=== PATIENT | female | born 1985 | race Caucasian/White ===

== ENCOUNTER 2024-02-10 20:04 | Emergency (ER) | payer OTHER, SELFPAY ==
[2024-02-10 20:17] VITALS: BP 135/84; PULSE 78; RESP 18; TEMP 36.9; O2SAT 98; BMI 25.0
--- NOTE | 2024-02-10 21:08 | ED_ITS ---
HPI - General Adult General Chief complaint: Anxiety Stated complaint: Possible heart issue or panic attack Time Seen by Provider: 02/10/24 21:07 History of Present Illness HPI narrative: hour ago had 130 racing heart with tingle across chest, states on empty stomach took too much caffeine and thc gummies. hx anxiety but no panic attacks. denies , states cycle starts tomorrow . denies SOB or CP 38-year-old woman presenting to the emergency department with concern racing heart possible heart attack. Anticipating social event this evening. About an hour prior to arrival in the emergency department experienced racing heart with her watch measuring around 130. She did have caffeine and some THC gummies. She is not feeling chest pain or shortness of breath. Was a little lightheaded maybe. Underlying history of anxiety but does not typically experience panic attacks. Understandably became further worried about the symptoms feeling some tingling, tension across her chest. Related Data Home Medications ?Medication ?Instructions ?Recorded ?Confirmed norethindrone acetate 5 mg tablet 5 mg PO DAILY 02/10/24 02/10/24 Allergies Allergy/AdvReac Type Severity Reaction Status Date / Time No Known Drug Allergies Allergy Verified 02/10/24 20:19 Review of Systems Status of ROS: Reports: 6 or more systems reviewed and unremarkable except as noted in History and below [facility] Medical History No significant past medical history Surgical History (Updated 02/10/24 @ 22:16 by Hunter Gilbert RN) No significant past surgical history Social History Smoking Status: Never smoker Second hand tobacco smoke exposure: No How often do you have a drink containing alcohol: never AUDIT-C Alcohol total score: 0 Non-prescribed substance use: marijuana (any form) Exam Narrative: Exam Narrative: Pleasant. NAD. Perhaps mildly anxious. Here with appropriately attentive partner. Breathing easily. There is no stridor. Heart in regular rate and rhythm without murmur rub or gallop. Lungs are clear. Skin is warm and dry well-perfused. Const: Vital Signs, click to edit/add: Vital Signs - 24 hr 02/10/24 20:17 02/10/24 22:00 02/10/24 22:00 Temperature 98.5 F 98.5 F 98.5 F Pulse Rate [Pulse Oximeter] 78 72 72 Respiratory Rate 18 18 18 Blood Pressure [Ri t Upper Arm] 135/84 122/74 122/74 Pulse Oximetry 98 98 Oxygen Delivery Me thod Room Air Room Air Documenting provider has reviewed patient's vital signs: yes Course Vital Signs Vital signs: Initial Vital Signs Temperature 98.5 F 02/10/24 20:17 Temperature Source Temporal Artery Scan 02/10/24 20:17 Pulse Rate 78 02/10/24 20:17 Respiratory Rate 18 02/10/24 20:17 Respiratory Effort Normal, Spontaneous, Non-Labored 02/10/24 20:17 Respiratory Depth Normal 02/10/24 20:17 Respiratory Pattern Normal 02/10/24 20:17 Blood Pressure 135/84 02/10/24 20:17 Blood Pressure Mean 101 02/10/24 20:17 Blood Pressure Position Sitting 02/10/24 20:17 Pulse Oximetry 98 02/10/24 20:17 Oxygen Delivery Method Room Air 02/10/24 20:17 Vital Signs Temperature 98.5 F 02/10/24 20:17 Pulse Rate 78 02/10/24 20:17 Respiratory Rate 18 02/10/24 20:17 Blood Pressure 135/84 02/10/24 20:17 Pulse Oximetry 98 02/10/24 20:17 Oxygen Delivery Method Room Air 02/10/24 20:17 Temperature 98.5 F 02/10/24 22:00 Pulse Rate 72 02/10/24 22:00 Respiratory Rate 18 02/10/24 22:00 Blood Pressure 122/74 02/10/24 22:00 Pulse Oximetry 98 02/10/24 22:00 Oxygen Delivery Method Room Air 02/10/24 22:00 Medical Decision Making MDM Narrative Medical decision making narrative: Symptoms are not inconsistent with drug reaction +/- mild exacerbation of anxiety perhaps as well. I doubt that this is an ischemic cardiovascular event. May have been unrelated tachyarrhythmia. Do have EKG available prior to seeing Lety. In a normal sinus and at a normal rate at this time. Is already improved with symptoms by the time I am seeing her. No history of endocrine/thyroid abnormalities. Monitored briefly in the emergency department without further event. I do not think further workup is necessary. See patient discharge plan for further discussion ECG Data Attestation: I personally reviewed and interpreted this ECG as follows: (Normal sinus rhythm. Rate of 76. No delta wave.) Discharge Plan Discharge Clinical Impression: Drug side effects, Anxiety Patient Disposition: Home w/ Parent or Adult Condition: Improved Additional Instructions: Yes. I would hydrate with some water. You appear safe. I think you can continue to enjoy your evening. Prescriptions: No Action norethindrone acetate 5 mg tablet 5 mg PO DAILY Stand Alone Forms: [employer] Info Instructions
[2024-02-10 22:00] VITALS: BP 122/74; PULSE 72; RESP 18; TEMP 36.9; O2SAT 98
== END 2024-02-10 22:00 | disposition home or self-care (01) ==
LOC: ED 21:39
PROVIDERS: Emergency Provider Family Medicine
DX: F41.9 Anxiety disorder, unspecified (principal); T40.715A Adverse effect of cannabis, initial encounter
CPT/HCPCS: 93005; 99284